=== PATIENT | female | born 1960 | race American Indian/Alaskan Native ===

== ENCOUNTER 2018-09-10 14:10 | Outpatient (CLI) | payer OTHER ==
--- NOTE | 2018-09-11 09:08 | Mammography Report ---
BILATERAL DIGITAL SCREENING MAMMOGRAM WITH CAD: 09/10/18 14:10:00 CLINICAL: Routine screening.Breast cancer survivor status post right partial mastectomy , radiation therapy and chemotherapy in . COMPARISON:None. She doesn't remember where she last had a mammogram. FINDINGS: The breasts are heterogeneously dense, which may obscure small masses. The right breast is smaller than the left with minimal postsurgical scar. A right upper outer biopsy clip and a right axillary lymph node with benign calcifications. A left outer biopsy clip and left upper inner calcifications requiring additional imaging. No mass or architectural distortion. IMPRESSION: Left calcifications requiring additional imaging. RECOMMENDATION: Recall for left LM and LM and CC magnification views. BI-RADS CATEGORY: 0--Needs Additional Imaging COMMENT: Patient follow-up letters are generated via our [employer] application.
== END 2018-09-10 14:11 | disposition home or self-care (01) ==
LOC: SPVWC 14:10
PROVIDERS: ATTEND Internal Medicine
DX: Z12.31 Encounter for screening mammogram for malignant neoplasm of breast (principal)
CPT/HCPCS: 77067

== ENCOUNTER 2020-08-14 15:56 | Outpatient (CLI) | payer OTHER | END 2020-08-14 15:57 | disposition home or self-care (01) | LOC: LABHHL 15:56 | PROVIDERS: ATTEND Surgery | DX: C50.411 Malignant neoplasm of upper-outer quadrant of right female breast (principal); N63.11 Unspecified lump in the right breast, upper outer quadrant; Z17.0 Estrogen receptor positive status [ER+] | CPT/HCPCS: 88305; 88341; 88342 ==

== ENCOUNTER 2020-11-18 12:13 | Observation (INO) | payer BC, OTHER ==
[2020-11-10 11:21] LABS: Hemoglobin 13.7 gm/dl (10.1-14.3); Mean Corpuscular HGB Conc 34 % (30-34); Mean Corpuscular Volume 89 fl (79-97); Platelet Count 344 K/mm3 (140-440); Red Blood Count 4.48 M/mm3 (3.65-5.03); Red Cell Distribution Width 13.1 % (13.2-15.2)
[2020-11-10 11:45] LABS: Alanine Aminotransferase 21 units/L (7-56); Albumin 4.2 g/dL (3.9-5); Blood Urea Nitrogen 12 mg/dL (7-17); Calcium 9.5 mg/dL (8.4-10.2); Hemolysis Index 10
[2020-11-10 11:50] LABS: BUN/Creatinine Ratio 17
--- NOTE | 2020-11-10 14:33 | Anesthesia Consultation ---
Anesthesia Consult and Med Hx Date of service: 11/18/20 - Airway Anesthetic Teeth Evaluation: Good ROM Head & Neck: Adequate Mental/Hyoid Distance: Adequate Mallampati Class: Class II Intubation Access Assessment: Probably Good - Pulmonary Exam CTA: Yes - Cardiac Exam Cardiac Exam: RRR - Pre-Operative Health Status ASA Pre-Surgery Classification: ASA2 Proposed Anesthetic Plan: General Nerve Block: PEC - Pulmonary Hx Smoking: No Hx Respiratory Symptoms: No - Cardiovascular System Hx Hypertension: Yes - Central Nervous System CVA: No - Endocrine Hx Renal Disease: No Hx Liver Disease: No Hx Insulin Dependent Diabetes: No Hx Non-Insulin Dependent Diabetes: No Hx Thyroid Disease: No - Other Systems Hx Cancer: Yes (breast ca; no chemotherapy) - Additional Comments Anesthesia Medical History Comments: No hx anesthetic complications.
--- NOTE | 2020-11-18 10:38 | Operative Report ---
Operative Report Operative Report: Operative Report: Date of Service: November 18, 2020 Preoperative diagnosis: Right breast cancer of the upper outer quadrant Postoperative diagnosis: Same Procedure: Right total mastectomy with attempted sentinel lymph node biopsy Surgeon: Estela Vital M.D. Food Inspector: Dorothy Fontanez M.D. Anesthesia: Gen. Findings: Right breast clip present within right total mastectomy; attempted right sentinel lymph node biopsy with no uptake or blue dye present Complications: None Drains: per Plastic Surgery Estimated blood loss: Less than 50 cc Disposition: Plastic surgery proceeded with right tissue assistant health educator placement Indications for operative procedure: This is a 60-year-old lady with a personal history of right breast cancer diagnosed in 1998 and underwent a right partil mastectomy with axillary lymph node sampling and she completed adjuvant radiation therapy. Patient now with newly diagnosed right breast cancer of palpable mass at the 11:30/12:00 position 12 cm FN of 2 cm; [id number] ER/AK positive Stage IB. Recommendations were to proceed with a right total mastec sabrina, patient not a candidate for breast conservation given prior right chest wall radiation. She met with radiation oncology and medical oncology prior to surgery as well and tumor board recommendations for a right total mastectomy. Genetic testing with no significant gene mutation. She wished to proceed with immediate right tissue assistant health educator placement by plastic surgery. Medical oncology will obtain Oncotype DX for evaluation for adjuvant chemotherapy. She wished to proceed with the above procedure. Procedure in detail: The patient was taken to the operating room and was placed supine. Gen. anesthesia was administered. The right nipple was injected with radioisotope and 1 cc of methylene blue. Bilateral chest and axillas were prepped and draped in the normal sterile operative fashion. Timeout was performed. Typical mastectomy incision markings was made; known cancer around the 11:30/12:00 position 10-12 cm FN. Ultrasound was used as well. Attention was taken towards the right breast. A gamma probe was inserted into the axilla to identify the sentinel lymph node location with minimal uptake noted. A skin incision was made with a 15 blade knife and dissection taken down to the subcutaneous tissues. First began raising of the superior flap to the level of the clavicle superiorly and posteriorly to the pectoralis muscle. Area of known malignancy noted with appropriate margins upon raising of the flap; underskin surfaced marked as well with interruped 3-0 proline. Followed by raising of the medial flap to the level of the sternum and posteriorly to the pectoralis muscle. Followed by raising of the lateral flap to the level of the latissimus dorsi muscle and taken down posteriorly. The gamma probe was inserted into the axilla, the axillary fascia was opened and no uptake present and no blue dye present. No palpable axillary lymph nodes-patient with prior axillary lymph node sampling. Did not proceed with an ALND given no suspicious axillary lymph nodes and prior ultrasound with no suspicious findings. Then proceeded with raising of the inferior flap to the level of the inframammary fold taken posterior to the pectoralis muscle. The mastectomy/breast was removed from the pectoralis muscle without incident. The specimen was appropriately marked and sent to radiology with findings of breast clip present and sent to pathology. Hemostasis was obtained. The chest wall cavity was irrigated. She tolerated surgery very well and plastic surgery then proceeded with right tissue assistant health educator placement.
--- NOTE | 2020-11-18 10:40 | Short Stay Summary ---
Short Stay Documentation Date of service: 11/18/20 - History H&P: obtained from office - Allergies and Medications Current Medications: Allergies No Known Allergies Allergy (Verified 11/10/20 10:37) Home Medications Medication Instructions Recorded Confirmed Last Taken Type Losartan [Cozaar] 50 mg PO QDAY 11/10/20 11/18/20 11/18/20 05:00 History hydroCHLOROthiazide [Hctz] 12.5 mg PO QDAY 11/10/20 11/18/20 11/17/20 08:00 History Active Medications Acetaminophen (Acetaminophen 500 Mg Tab) 1,000 mg PO PREOP LISSY Stop: 11/18/20 21:00 Last Admin: 11/18/20 06:55 Dose: 1,000 mg Documented by: Cefazolin Sodium (Cefazolin/Sterile Water 2 Gm/20 Ml Syringe) 2 gm IV PREOP NR Stop: 11/18/20 23:00 Celecoxib (Celecoxib 200 Mg Cap) 200 mg PO PREOP NR Stop: 11/18/20 21:00 Last Admin: 11/18/20 06:55 Dose: 200 mg Documented by: Fentanyl (Fentanyl 100 Mcg/2 Ml Inj) 100 mcg IV ONCE PRN PRN Reason: sedation for nerve block Stop: 11/18/20 21:00 Last Admin: 11/18/20 07:29 Dose: 100 mcg Documented by: Gabapentin (Gabapentin 300 Mg Cap) 300 mg PO PREOP NR Stop: 11/18/20 21:00 Last Admin: 11/18/20 06:55 Dose: 300 mg Documented by: Lactated Ringer's (Lactated Ringers) 1,000 mls @ 100 mls/hr IV DIRECT LISSY Stop: 11/18/20 23:59 Last Admin: 11/18/20 07:00 Dose: 100 mls/hr Documented by: Magnesium Oxide (Magnesium Oxide 400 Mg Tab) 400 mg PO PREOP LISSY Stop: 11/18/20 21:00 Last Admin: 11/18/20 06:55 Dose: 400 mg Documented by: Midazolam HCl (Midazolam 2 Mg/2 Ml Inj) 2 mg IV PREOP NR Stop: 11/18/20 21:00 Last Admin: 11/18/20 07:28 Dose: 2 mg Documented by: - Brief post op/procedure progress note Date of procedure: 11/18/20 Pre-op diagnosis: Right breast cancer UOQ Post-op diagnosis: same Procedure: Right total mastectomy with attempted right SLNB Anesthesia: GETA Findings: Right breast clip present Surgeon: GEORGINA MASSEY Estimated blood loss: minimal Pathology: list (right total mastectomy) Specimen disposition: to lab Condition: stable - Disposition Condition at discharge: Good Disposition: DC/TX- [facility] HOSP IP Short Stay Discharge Plan Activity: other (no heavy lifting) Diet: regular Wound: keep clean and dry (keep PICCO dressing clean and dry) Follow up with: GEORGINA MASSEY MD [Staff Physician] - 7 Days
--- NOTE | 2020-11-18 11:01 | Mammography Report ---
BREAST SPECIMEN RADIOGRAPH HISTORY: Right lumpectomy FINDINGS/IMPRESSION: The submitted radiograph or radiographs demonstrate(s) the presence of 2 biopsy clips, as noted on re cent mammogram, 08/14/2020 . Signer Name: Nadine Turner MD Signed: 11/18/2020 10:57 AM Workstation Name: [id number]
[~2020-11-18 12:13] MED LIST: ACETAMINOPHEN 325 MG TAB PO PRN; ACETAMINOPHEN 500 MG TAB PO SCH; BACITRACIN 50,000 UNIT VIAL IR ONE; BACITRACIN 50,000 UNIT VIAL ONE; BUPIVACAINE-EPINEPHRINE/PF 0.25%-1:200,000 (30 ML) VIAL INFILTRATI ONE; CELECOXIB 200 MG CAP PO NR; GABAPENTIN 300 MG CAP PO NR; GENTAMICIN 40 MG/ML VIAL 2 ML IV ONE; GENTAMICIN 40 MG/ML VIAL 2 ML ONE; GLYCOPYRROLATE 0.4 MG/2 ML INJ ONE; HYDROmorphone 1 MG/1 ML INJ ONE; HYDROmorphone 2 MG TAB PO PRN; LACTATED RINGERS 1,000 ML IV SCH; LACTATED RINGERS 1,000 ML ONE; LIDOCAINE MPF (2%) 20 MG/1 ML VIAL 5 ML ONE; MAGNESIUM OXIDE 400 MG TAB PO SCH; METHYLENE BLUE 50 MG/10 ML AMP IRRIGATION ONE; METHYLENE BLUE 50 MG/10 ML AMP ONE; METOCLOPRAMIDE 10 MG TAB PO PRN; MIDAZOLAM 2 MG/2 ML INJ IV NR; MORPHINE 2 MG/1 ML INJ IV PRN; NEOSTIGMINE 10MG/10 ML INJ MDV ONE; ONDANSETRON 4 MG/2 ML INJ IV PRN; ONDANSETRON 4 MG/2 ML INJ ONE; PHENYLEPHRINE/NS 1,000 MCG/10 ML SYRINGE (OR USE) IV ONE; ROCURONIUM 50 MG/5 ML INJ IV ONE; SODIUM CHLORIDE 0.9% 1000 ML IV SOLN IJ ONE; SODIUM CHLORIDE 0.9% IRR 1,500 ML BOTTLE IR ONE; SODIUM CHLORIDE 0.9% P/F 10 ML VIAL INFILTRATI ONE; SODIUM CHLORIDE P/F VIAL 10 ML 20 ML ONE; SUCCINYLCHOLINE CHLORIDE 200 MG/10 ML INJ MDV ONE; WATER FOR IRRIG STERILE 1,500 ML BOTTLE IR ONE; ceFAZolin 1 GM VIAL IV ONE; ceFAZolin 1 GM VIAL ONE; ceFAZolin/STERILE WATER 2 GM/20 ML SYRINGE IV NR; dexAMETHasone 20 MG/5 ML VIAL ONE; dexAMETHasone 4 MG/ML VIAL ONE; diphenhydrAMINE 25 MG CAP PO PRN; fentaNYL 100 MCG/2 ML INJ IV PRN; fentaNYL 100 MCG/2 ML INJ ONE; oxyCODONE /ACETAMINOPHEN 5-325MG TAB PO PRN; propofoL 200 MG/20 ML VIAL IV ONE
--- NOTE | 2020-11-18 12:32 | Operative Report ---
PREOPERATIVE DIAGNOSIS: Right breast cancer. POSTOPERATIVE DIAGNOSIS: Right breast cancer. PROCEDURES: 1. Right breast reconstruction with tissue office equipment technician prepectoral position. 2. Right breast reconstruction using biological mesh. SURGEON: Marlon Payton MD MANAGER INTEGRATED: None. ANESTHESIA: General. OPERATIVE INDICATIONS: This is a 60-year-old female who was referred to me by Dr. Vital for reconstruction, who presented with a right-sided breast cancer. We had discussion with the patient about the different options for reconstruction. We decided on a tissue office equipment technician to implant reconstruction just on the right side. Risks and benefits were discussed with the patient, she agreed. OPERATIVE DETAILS: With informed consent obtained, the patient was brought to the operating room and placed supine on the operating table. General anesthesia and IV antibiotics were administered. Dr. Vital was here at the beginning of the case to start the mastectomy, I came in after the mastectomy had been completed, verified the correct side, and procedure, and proceeded. She had a right mastectomy defect with a very little residual skin remaining for closure. Otherwise, the skin flaps were thin, but they appeared healthy. There were no signs of tissue perfusion at that time. We decided to go ahead with prepectoral reconstruction, but with very small fill volume to not put any pressure on the skin flaps. We went ahead and achieved hemostasis and irrigated and then we prepared our prepectoral implant on the backtable, I used a TransGenRxa high profile 375 mL tissue office equipment technician with serial #[id number]. We filled it with 100 mL of fluid. We did almost complete wrap using 2 pieces of [employer]. One piece 8 x 16 cm with lot #[id number] and another piece 10 x 20 cm with lot #[id number]. We used 2-0 PDS to secure the wrap all the way around the office equipment technician. We then placed the office equipment technician in the prepectoral position and sewed it in place circumferentially using the tabs and the mesh to secure to the chest wall. We then irrigated again with Betadine and triple antibiotic irrigation, placed a 15 and 19-Arabic Volodymyr drain, secured it in place and then began with closure. We closed with 2-0 Vicryls to pull Gabriela's together to take the tension off the closure, then 3-0 Monocryl deep dermals and 3-0 Monocryl running subcuticular barbed suture on the skin. We then used Dermabond and then Biopatches and Tegaderm over the drain sites. The patient tolerated the procedure well, was awakened from general anesthesia, transferred to PACU in stable condition. ESTIMATED BLOOD LOSS: Less than 100 mL. COMPLICATIONS: None. SPECIMENS: Per Dr. Vital. FINDINGS: Right mastectomy defect. Total fill volume of the office equipment technician 100 mL. JOB# [id number] A/NTS
--- NOTE | 2020-11-18 15:04 | Anesthesia Day of Surgery ---
Anesthesia Day of Surgery - Day of Surgery Patient Examined: Yes Patient H&P Reviewed: Yes Patient is NPO: Yes
--- NOTE | 2020-11-18 15:05 | Post Anesthesia Evaluation ---
- Post Anesthesia Evaluation Patient Participated: Yes Airway Patent: Yes Stable Respiratory Function: Yes Nausea/Vomiting: No Temp > 96.8F: Yes Pain Manageable: Yes Adequeate Hydration: Yes Anesthesia Complications: No Block Receding Appropriately: Yes Patient on Ventilator: No
[2020-11-18 17:19] VITALS: BP 139/68
[2020-11-18] MEDS ORDERED: DOCUSATE SODIUM 100 MG CAP PO SCH (22:00)
== END 2020-11-18 17:34 | disposition home or self-care (01) ==
LOC: OR 12:13 → OB 12:32
PROVIDERS: ADMIT Surgery; ATTEND Surgery
DX: C50.411 Malignant neoplasm of upper-outer quadrant of right female breast (principal); Z20.828 Contact with and (suspected) exposure to other viral communicable diseases; Z85.3 Personal history of malignant neoplasm of breast
CPT/HCPCS: 15777; 19303; 19357; 36415; 64450; 76098; 78800; 80053; 85027; 88309; 96360; 96361; A9541; C1789; G0378; J0330; J0690; J1100; J1170; J1580; J2250; J2370; J2405; J2704; J2710; J3010; J7120; Q4100; Q9968; U0003; 88307; 88341; 88342; J7030

== ENCOUNTER 2021-07-07 08:25 | Outpatient (CLI) | payer BC ==
--- NOTE | 2021-07-07 13:11 | Mammography Report ---
DIGITAL SCREENING MAMMOGRAM WITH TOMOSYNTHESIS WITH CAD, 07/07/2021 CLINICAL INFORMATION / INDICATION: Routine Screening Mammography. TECHNIQUE: Digital left 2D and 3D mammography with tomosynthesis was obtained in the craniocaudal an d mediolateral oblique projections. Computer-Aided Detection (CAD) analysis was used for interpretat ion of this study. COMPARISON: 09/10/18, 10/22/18, 07/06/20 FINDINGS: Breast Density: The breasts are heterogeneously dense, which may obscure small masses. No dominant mass, suspicious calcifications, or architectural distortion in the left breast. Left breast surgical scar and biopsy marker are unchanged. Left breast calcifications appear stable. IMPRESSION: No mammographic evidence of malignancy. Follow up recommendation: Routine yearly BI-RADS Category 2: Benign. A "normal" or negative report should not discourage follow up or biopsy of a clinically significant f inding. A written summary of these findings will be mailed to the patient. The patient will be entered into a mammography reporting system which will generate a reminder letter for the patient's next appointmen t at the appropriate interval. The [employer] recommends yearly mammograms starting at age 40 and continuing as l rickie as a woman is in good health. Breast MRI is recommended for women with an approximate 20-25% or greater lifetime risk of breast cancer, including women with a strong family history of breast or ova andrea cancer or who have been treated for Hodgkin's disease. Signer Name: David Obando MD Signed: 07/07/2021 1:06 PM Workstation Name: [id number]
== END 2021-07-07 08:26 | disposition home or self-care (01) ==
LOC: SPVWC 08:25
PROVIDERS: ATTEND Surgery
DX: Z12.31 Encounter for screening mammogram for malignant neoplasm of breast (principal)
CPT/HCPCS: 77063

== ENCOUNTER 2022-07-12 10:53 | Outpatient (CLI) | payer BC ==
--- NOTE | 2022-07-14 16:33 | Mammography Report ---
DIGITAL SCREENING MAMMOGRAM WITH CAD, 07/12/2022 CLINICAL INFORMATION / INDICATION: Routine screening mammography. History of breast cancer. TECHNIQUE: Digital left 2D mammography was obtained in the craniocaudal and mediolateral oblique pro jections. This examination was interpreted with the benefit of Computer-Aided Detection analysis. COMPARISON: 07/07/2021, 08/14/2020 FINDINGS: Breast Density: The breast is heterogeneously dense, which may obscure small masses. No dominant mass, suspicious calcifications, or architectural distortion in the left breast. There ar e similar changes from prior left breast surgery and biopsy. Benign-appearing calcifications are unch anged. IMPRESSION: No mammographic evidence of malignancy. Follow up recommendation: Routine yearly screening mammogram. - The ACR recommends yearly screening MRI in patients with a personal history of breast cancer who [place] ve dense fibroglandular tissue as well in patients who were diagnosed with breast cancer under the ag e of 50. BI-RADS Category 2: BENIGN. A "normal" or negative report should not discourage follow up or biopsy of a clinically significant f inding. A written summary of these findings will be mailed to the patient. The patient will be entered into a mammography reporting system which will generate a reminder letter for the patient's next appointmen t at the appropriate interval. The [employer] recommends yearly mammograms starting at age 40 and continuing as l rickie as a woman is in good health. Breast MRI is recommended for women with an approximate 20-25% or greater lifetime risk of breast cancer, including women with a strong family history of breast or ova andrea cancer or who have been treated for Hodgkin's disease. Signer Name: Donald Henry MD Signed: 07/14/2022 4:28 PM Workstation Name: [id number]
== END 2022-07-12 10:54 | disposition home or self-care (01) ==
LOC: SPVWC 10:53
PROVIDERS: ATTEND Surgery
DX: Z12.31 Encounter for screening mammogram for malignant neoplasm of breast (principal)